=== PATIENT | female | born 1980 | race Caucasian/White ===

== ENCOUNTER → 2016-12-06 | Outpatient (CLI) | payer OTHER ==
[~2016-12-06] MED LIST: ALBUAER19 INH; IUD'IUD PV; OMEP20CA9 PO
== END | disposition home or self-care (01) ==
LOC: C.RDSM 14:13
PROVIDERS: ATTEND Physical Medicine & Rehabilitation Sports Medicine
DX: Z98.890 Other specified postprocedural states (principal)